=== PATIENT | female | born 1955 | race African-American/Black ===

== ENCOUNTER → 2016-09-10 | Outpatient (CLI) | payer OTHER ==
[2016-09-10 10:14] LABS: ANION GAP 15 (5-19); BLOOD UREA NITROGEN 39 mg/dL (7-20); CALCIUM 10.2 mg/dL (8.4-10.2); CARBON DIOXIDE 23 mmol/L (22-30); CHLORIDE 108 mmol/L (98-107); CREATININE RESULT 2.11 mg/dL (0.52-1.25); GLUCOSE 95 mg/dL (75-110); POTASSIUM 5.1 mmol/L (3.6-5.0); SODIUM 145.6 mmol/L (137-145)
[2016-09-11 11:40] LABS: CREATININE URINE 63.9 mg/dL (Not Estab.)
== END ==
LOC: OD 08:12
PROVIDERS: ATTEND Internal Medicine Nephrology
DX: N18.4 Chronic kidney disease, stage 4 (severe) (principal); R80.1 Persistent proteinuria, unspecified
CPT/HCPCS: 36415; 80048; 82570; 84156

== ENCOUNTER → 2016-12-17 | Outpatient (CLI) | payer OTHER ==
[2016-12-17 09:10] LABS: ABSOLUTE EOSINOPHILS # (AUTO) 0.2 10^3/uL (0.0-0.6); ABSOLUTE LYMPHOCYTES (AUTO) 2.8 10^3/uL (0.5-4.7); ABSOLUTE MONOCYTES (AUTO) 0.5 10^3/uL (0.1-1.4); ABSOLUTE NEUT (AUTO) 2.3 10^3/uL (1.7-8.2); BASOPHILS % (AUTO) 0.6 % (0-2); EOSINOPHILS % (AUTO) 3.5 % (0-6); HEMOGLOBIN 12.1 g/dL (12.0-15.5); HGB HCT DIFFERENCE -1.7; LYMPHOCYTES % (AUTO) 47.7 % (13-45); MEAN CORPUSCULAR HEMOGLOBIN 25.5 pg (27.0-33.4); MEAN CORPUSCULAR HGB CONC 31.8 g/dL (32.0-36.0); MEAN CORPUSCULAR VOLUME 80 fl (80-97); MONOCYTES % (AUTO) 8.5 % (3-13); RED BLOOD COUNT 4.76 10^6/uL (3.72-5.28); RED CELL DISTRIBUTION WIDTH 14.5 % (11.5-14.0); SEGMENTED NEUTROPHILS % (AUTO) 39.7 % (42-78); WHITE BLOOD COUNT 5.9 10^3/uL (4.0-10.5)
[2016-12-17 09:44] LABS: ANION GAP 18 (5-19); BLOOD UREA NITROGEN 68 mg/dL (7-20); CALCIUM 9.8 mg/dL (8.4-10.2); CARBON DIOXIDE 19 mmol/L (22-30); CHLORIDE 108 mmol/L (98-107); CREATININE RESULT 2.51 mg/dL (0.52-1.25); GLUCOSE 99 mg/dL (75-110); POTASSIUM 4.9 mmol/L (3.6-5.0); SODIUM 144.8 mmol/L (137-145)
[2016-12-17 09:49] LABS: URINE CREATININE 77.6 mg/dL (15-278); URINE PROTEIN 14.3 mg/dL (<12)
== END ==
LOC: OD 07:56
PROVIDERS: ATTEND Internal Medicine Nephrology
DX: N18.4 Chronic kidney disease, stage 4 (severe) (principal); R80.1 Persistent proteinuria, unspecified; N18.9 Chronic kidney disease, unspecified
CPT/HCPCS: 36415; 80048; 82570; 84156; 85025

== ENCOUNTER → 2017-03-18 | Outpatient (CLI) | payer OTHER ==
[2017-03-18 09:35] LABS: APPEARANCE,URINE SLIGHTLY-CLOUDY; BILIRUBIN,URINE NEGATIVE (NEGATIVE); GLUCOSE, URINE NEGATIVE (NEGATIVE); KETONES,URINE NEGATIVE (NEGATIVE); LEUKOCYTE ESTERASE,URINE NEGATIVE (NEGATIVE); NITRITE,URINE NEGATIVE (NEGATIVE); PROTEIN,URINE NEGATIVE (NEGATIVE); URINE SPECIFIC GRAVITY 1.008; UROBILINOGEN,URINE NEGATIVE mg/dL (<2.0)
[2017-03-18 09:41] LABS: ABSOLUTE EOSINOPHILS # (AUTO) 0.3 10^3/uL (0.0-0.6); ABSOLUTE LYMPHOCYTES (AUTO) 2.9 10^3/uL (0.5-4.7); ABSOLUTE MONOCYTES (AUTO) 0.5 10^3/uL (0.1-1.4); ABSOLUTE NEUT (AUTO) 2.7 10^3/uL (1.7-8.2); BASOPHILS % (AUTO) 0.8 % (0-2); EOSINOPHILS % (AUTO) 4.1 % (0-6); LYMPHOCYTES % (AUTO) 44.6 % (13-45); MEAN CORPUSCULAR HEMOGLOBIN 25.6 pg (27.0-33.4); MEAN CORPUSCULAR HGB CONC 32.5 g/dL (32.0-36.0); MEAN CORPUSCULAR VOLUME 79 fl (80-97); MONOCYTES % (AUTO) 8.3 % (3-13); RED BLOOD COUNT 4.69 10^6/uL (3.72-5.28); RED CELL DISTRIBUTION WIDTH 14.3 % (11.5-14.0); SEGMENTED NEUTROPHILS % (AUTO) 42.2 % (42-78); WHITE BLOOD COUNT 6.4 10^3/uL (4.0-10.5)
[2017-03-18 09:51] LABS: URINE CREATININE 83.1 mg/dL (15-278)
[2017-03-18 10:01] LABS: ALBUMIN 4.5 g/dL (3.5-5.0); ANION GAP 15 (5-19); BLOOD UREA NITROGEN 53 mg/dL (7-20); CALCIUM 10.3 mg/dL (8.4-10.2); CARBON DIOXIDE 24 mmol/L (22-30); CHLORIDE 106 mmol/L (98-107); CREATININE RESULT 2.64 mg/dL (0.52-1.25); GLUCOSE 99 mg/dL (75-110); PHOSPHORUS 4.2 mg/dL (2.5-4.5); POTASSIUM 4.6 mmol/L (3.6-5.0); SODIUM 145.2 mmol/L (137-145)
== END ==
LOC: OD 08:18
PROVIDERS: ATTEND Internal Medicine Nephrology
DX: N18.4 Chronic kidney disease, stage 4 (severe) (principal); N03.2 Chronic nephritic syndrome with diffuse membranous glomerulonephritis
CPT/HCPCS: 36415; 80048; 81001; 82040; 82306; 82570; 83970; 84100; 84156; 85025

== ENCOUNTER → 2017-06-17 | Outpatient (CLI) | payer OTHER ==
[2017-06-17 10:02] LABS: URINE CREATININE 100.3 mg/dL (15-278); URINE PROTEIN 19.2 mg/dL (<12)
[2017-06-17 14:06] LABS: ANION GAP 15 (5-19); BLOOD UREA NITROGEN 59 mg/dL (7-20); CALCIUM 10.2 mg/dL (8.4-10.2); CARBON DIOXIDE 24 mmol/L (22-30); CHLORIDE 107 mmol/L (98-107); CREATININE RESULT 2.59 mg/dL (0.52-1.25); GLUCOSE 111 mg/dL (75-110); POTASSIUM 4.4 mmol/L (3.6-5.0); SODIUM 146.3 mmol/L (137-145)
== END ==
LOC: OD 08:16
PROVIDERS: ATTEND Internal Medicine Nephrology
DX: N18.4 Chronic kidney disease, stage 4 (severe) (principal); R80.1 Persistent proteinuria, unspecified
CPT/HCPCS: 36415; 80048; 82570; 84156

== ENCOUNTER → 2017-09-23 | Outpatient (CLI) | payer OTHER ==
[2017-09-23 10:51] LABS: ABSOLUTE EOSINOPHILS # (AUTO) 0.2 10^3/uL (0.0-0.6); ABSOLUTE LYMPHOCYTES (AUTO) 2.7 10^3/uL (0.5-4.7); ABSOLUTE MONOCYTES (AUTO) 0.5 10^3/uL (0.1-1.4); ABSOLUTE NEUT (AUTO) 2.9 10^3/uL (1.7-8.2); BASOPHILS % (AUTO) 0.4 % (0-2); EOSINOPHILS % (AUTO) 3.4 % (0-6); HEMATOCRIT 37.5 % (36.0-47.0); HEMOGLOBIN 12.1 g/dL (12.0-15.5); LYMPHOCYTES % (AUTO) 42.1 % (13-45); MEAN CORPUSCULAR HEMOGLOBIN 25.4 pg (27.0-33.4); MEAN CORPUSCULAR HGB CONC 32.1 g/dL (32.0-36.0); MEAN CORPUSCULAR VOLUME 79 fl (80-97); MONOCYTES % (AUTO) 8.4 % (3-13); PLATELET COUNT 271 10^3/uL (150-450); RED BLOOD COUNT 4.74 10^6/uL (3.72-5.28); RED CELL DISTRIBUTION WIDTH 14.4 % (11.5-14.0); SEGMENTED NEUTROPHILS % (AUTO) 45.7 % (42-78); TOTAL CELLS COUNTED % (AUTO) 100 %; WHITE BLOOD COUNT 6.3 10^3/uL (4.0-10.5)
[2017-09-23 10:56] LABS: APPEARANCE,URINE CLOUDY; BILIRUBIN,URINE NEGATIVE (NEGATIVE); COLOR,URINE YELLOW; GLUCOSE, URINE NEGATIVE (NEGATIVE); KETONES,URINE NEGATIVE (NEGATIVE); LEUKOCYTE ESTERASE,URINE NEGATIVE (NEGATIVE); NITRITE,URINE NEGATIVE (NEGATIVE); PROTEIN,URINE NEGATIVE (NEGATIVE); URINE SPECIFIC GRAVITY 1.009; UROBILINOGEN,URINE NEGATIVE mg/dL (<2.0)
[2017-09-23 11:14] LABS: ALBUMIN 4.6 g/dL (3.5-5.0); ANION GAP 15 (5-19); BLOOD UREA NITROGEN 62 mg/dL (7-20); CALCIUM 10.1 mg/dL (8.4-10.2); CARBON DIOXIDE 24 mmol/L (22-30); CHLORIDE 108 mmol/L (98-107); GLUCOSE 96 mg/dL (75-110); PHOSPHORUS 4.3 mg/dL (2.5-4.5); POTASSIUM 4.6 mmol/L (3.6-5.0); SODIUM 147.2 mmol/L (137-145)
[2017-09-23 11:32] LABS: UR PRO/CREAT RATIO RESULT 0.2 mg/mg (0.0-0.2); URINE CREATININE 84.1 mg/dL (15-278); URINE PROTEIN 15.8 mg/dL (<12)
== END ==
LOC: OD 10:10
PROVIDERS: ATTEND Internal Medicine Nephrology
DX: N18.4 Chronic kidney disease, stage 4 (severe) (principal); N25.81 Secondary hyperparathyroidism of renal origin; E79.0 Hyperuricemia without signs of inflammatory arthritis and tophaceous disease; E55.9 Vitamin D deficiency, unspecified
CPT/HCPCS: 36415; 80048; 81001; 82040; 82306; 82570; 83970; 84100; 84156; 84550; 85025

== ENCOUNTER 2019-01-27 09:31 | Day surgery (SDC) | payer MEDICARE, OTHER ==
[~2019-01-27 09:31] MED LIST: PROPOFOL INJ 200 MG/20 ML VIAL IV ONE
[2019-01-27] MEDS ORDERED: PROPOFOL INJ 200 MG/20 ML VIAL IV ONE (10:40)
--- NOTE | 2019-01-27 11:23 | Operative Report ---
Operative Report DATE OF SURGERY: 01/27/19 Operative Report: The risks, benefits and alternatives of the procedure including the risk of bleeding, perforation requiring surgery have been explained to the patient in detail and informed consent has been obtained. Patient is taken back to the endoscopy suite and placed in a left, lateral decubital position. Timeout was called. Propofol medication is administered. A rectal examination is done which did not reveal any masses, tears or fissures. An Olympus videoscope was introduced into the patient's rectum. The scope was then carefully advanced all the way to the cecum. The cecum was identified by the usual anatomical landmarks including the ileocecal valve as well as the appendiceal office. Photodocumentation is obtained. Scope was then sequentially pulled back via the various segments of the colon including the ascending colon, hepatic flexure, transverse colon, splenic flexure, descending colon and finally into the rectosigmoid portions of the colon. Retroflexion maneuvers performed. PREOPERATIVE DIAGNOSIS: Change in bowel habits, blood in stool POSTOPERATIVE DIAGNOSIS: Mild inflammation noted on the right-hand side of the colon status post biopsy. Diverticulosis of a moderate degree in the sigmoid colon without any evidence of diverticulitis. Internal hemorrhoids OPERATION: Colonoscopy with biopsy SURGEON: SILVERIO VAN ANESTHESIA: LMAC TISSUE REMOVED OR ALTERED: As noted above. COMPLICATIONS: None. ESTIMATED BLOOD LOSS: None. INTRAOPERATIVE FINDINGS: As noted above. PROCEDURE: Patient tolerated the procedure well. No immediate postprocedure complications are noted. Patient is discharged in good condition. Discharge date 01/27/2019. Discharge diet: Regular. Discharge activity: Regular. 2 to 3-week follow-up to discuss findings. Patient is instructed to call the office or proceed to the emergency room should there be any further problems or questions. Wait on the pathology.
[2019-01-27 11:35] VITALS: BP 147/81
== END 2019-01-27 11:26 | disposition home or self-care (01) ==
LOC: END 09:31
PROVIDERS: ATTEND Internal Medicine Gastroenterology
DX: K52.9 Noninfective gastroenteritis and colitis, unspecified (principal); K57.30 Diverticulosis of large intestine without perforation or abscess without bleeding; K64.8 Other hemorrhoids; K92.1 Melena; Z86.010 Personal history of colon polyps; I10 Essential (primary) hypertension; M10.9 Gout, unspecified; E66.9 Obesity, unspecified; Z68.41 Body mass index [BMI] 40.0-44.9, adult; Z79.51 Long term (current) use of inhaled steroids
CPT/HCPCS: 45380; 88305 ×2; 00811; J2704; 811

== ENCOUNTER → 2019-02-22 | Outpatient (CLI) | payer MEDICARE, OTHER | LOC: RAD 08:29 | PROVIDERS: ATTEND Internal Medicine Gastroenterology | DX: R10.11 Right upper quadrant pain (principal) | CPT/HCPCS: 82565 ==

== ENCOUNTER → 2020-04-16 | Outpatient (CLI) | payer MEDICARE, OTHER ==
[2020-04-16 12:24] LABS: ABSOLUTE BASOPHILS # (AUTO) 0.1 10^3/uL (0.0-0.2); ABSOLUTE EOSINOPHILS # (AUTO) 0.2 10^3/uL (0.0-0.6); ABSOLUTE LYMPHOCYTES (AUTO) 1.6 10^3/uL (0.5-4.7); ABSOLUTE MONOCYTES (AUTO) 0.4 10^3/uL (0.1-1.4); ABSOLUTE NEUT (AUTO) 3.2 10^3/uL (1.7-8.2); EOSINOPHILS % (AUTO) 2.9 % (0-6); HEMATOCRIT 35.7 % (36.0-47.0); HEMOGLOBIN 11.6 g/dL (12.0-15.5); LYMPHOCYTES % (AUTO) 29.2 % (13-45); MEAN CORPUSCULAR HEMOGLOBIN 25.7 pg (27.0-33.4); MEAN CORPUSCULAR HGB CONC 32.4 g/dL (32.0-36.0); MEAN CORPUSCULAR VOLUME 79 fl (80-97); PLATELET COUNT 317 10^3/uL (150-450); RED BLOOD COUNT 4.51 10^6/uL (3.72-5.28); RED CELL DISTRIBUTION WIDTH 16.4 % (11.5-14.0); SEGMENTED NEUTROPHILS % (AUTO) 58.9 % (42-78); TOTAL CELLS COUNTED % (AUTO) 100 %; WHITE BLOOD COUNT 5.5 10^3/uL (4.0-10.5)
[2020-04-16 12:26] LABS: APPEARANCE,URINE SLIGHTLY-CLOUDY; BILIRUBIN,URINE NEGATIVE (NEGATIVE); COLOR,URINE YELLOW; GLUCOSE, URINE NEGATIVE (NEGATIVE); KETONES,URINE NEGATIVE (NEGATIVE); LEUKOCYTE ESTERASE,URINE NEGATIVE (NEGATIVE); NITRITE,URINE NEGATIVE (NEGATIVE); PROTEIN,URINE NEGATIVE (NEGATIVE); URINE SPECIFIC GRAVITY 1.012; UROBILINOGEN,URINE NEGATIVE mg/dL (<2.0)
[2020-04-16 12:48] LABS: ALBUMIN 4.5 g/dL (3.5-5.0); ANION GAP 14 (5-19); BLOOD UREA NITROGEN 49 mg/dL (7-20); CALCIUM 10.3 mg/dL (8.4-10.2); CARBON DIOXIDE 23 mmol/L (22-30); CHLORIDE 107 mmol/L (98-107); GLUCOSE 107 mg/dL (75-110); POTASSIUM 4.3 mmol/L (3.6-5.0)
[2020-04-16 12:56] LABS: C-REACTIVE PROTEIN < 5.0 mg/L (<10.0)
[2020-04-16 13:06] LABS: ERYTHROCYTE SEDIMENTATION RATE 77 mm/hr (0-30)
--- NOTE | 2020-04-16 13:15 | RADIOLOGY REPORT (SQ) ---
EXAM DESCRIPTION: CHEST PA/LATERAL IMAGES COMPLETED DATE/TIME: 04/16/2020 12:18 pm REASON FOR STUDY: PRE-OP COMPARISON: None. EXAM PARAMETERS: NUMBER OF VIEWS: two views TECHNIQUE: Digital Frontal and Lateral radiographic views of the chest acquired. RADIATION DOSE: NA LIMITATIONS: none FINDINGS: LUNGS AND PLEURA: No opacities, masses or pneumothorax. No pleural effusion. MEDIASTINUM AND HILAR STRUCTURES: No masses or contour abnormalities. HEART AND VASCULAR STRUCTURES: Heart normal size. No evidence for failure. BONES: No acute findings. HARDWARE: None in the chest. OTHER: No other significant finding. IMPRESSION: NO SIGNIFICANT RADIOGRAPHIC FINDING IN THE CHEST. TECHNICAL DOCUMENTATION: JOB ID: [id number] 2010 [employer]- All Rights Reserved Reading location - IP/workstation name: [email or web address]
--- NOTE | 2020-04-16 19:51 | EKG REPORT ---
SEVERITY:- ABNORMAL ECG - SINUS RHYTHM INCOMPLETE LEFT BUNDLE BRANCH BLOCK : Confirmed by: Leandra Simmons 16-Apr-2020 19:50:27
== END ==
LOC: OD 10:41
PROVIDERS: ATTEND Orthopaedic Surgery
DX: Z01.812 Encounter for preprocedural laboratory examination (principal); Z01.811 Encounter for preprocedural respiratory examination; Z01.810 Encounter for preprocedural cardiovascular examination
CPT/HCPCS: 36415; 71046; 80048; 81001; 82040; 82306; 83036; 85025; 85652; 86140; 87070; 93005; 93010

== ENCOUNTER 2020-05-06 05:34 | Observation (INO) | payer MEDICARE, OTHER ==
[~2020-05-06 05:34] MED LIST changes: +ACETAMINOPHEN 325 MG TABLET PO PRN; +CEFAZOLIN 2 GM/D5W RTU 2 GM/50 ML RTUPB IV PRN; +CELECOXIB 200 MG CAPSULE PO PRN; +GABAPENTIN 100 MG CAPSULE PO PRN; +NORMAL SALINE 1000 ML (RENAL PATIENTS) IV PRN; +ONDANSETRON 4 MG TAB.RAPDIS PO PRN; +OXYCODONE HCL SR 10 MG TABLET PO PRN; +PANTOPRAZOLE SODIUM 20 MG TABLET.DR PO PRN; -PROPOFOL INJ 200 MG/20 ML VIAL IV ONE; +SCOPOLAMINE HYDROBROMIDE 1.5 MG PATCH.TD72 TD PRN; +TRANEXAMIC ACID INJ/PF 1,000 MG/10 ML SDV IV PRN; +VANCOMYCIN HCL 1,000 MG in DEXTROSE 5%-WATER 250 ML IV PRN
[2020-05-06] MEDS ORDERED: CELECOXIB 200 MG CAPSULE ONE (05:42)
[2020-05-06] MEDS ORDERED: CEFAZOLIN 2 GM/D5W RTU 2 GM/50 ML RTUPB IV ONE (05:42)
[2020-05-06] MEDS ORDERED: ACETAMINOPHEN 325 MG TABLET ONE (05:42)
[2020-05-06] MEDS ORDERED: OXYCODONE HCL SR 10 MG TABLET PO ONE (05:43)
[2020-05-06] MEDS ORDERED: GABAPENTIN 100 MG CAPSULE ONE (05:43)
[2020-05-06] MEDS ORDERED: ONDANSETRON 4 MG TAB.RAPDIS ONE (05:43)
[2020-05-06] MEDS ORDERED: PANTOPRAZOLE SODIUM 20 MG TABLET.DR PO ONE ×2 (05:43→09:00)
[2020-05-06] MEDS ORDERED: SCOPOLAMINE HYDROBROMIDE 1.5 MG PATCH.TD72 ONE (05:43)
[2020-05-06] MEDS ORDERED: FENTANYL CITRATE INJ/PF 100 MCG/2 ML AMPUL ONE (06:18)
[2020-05-06] MEDS ORDERED: TRANEXAMIC ACID INJ/PF 1,000 MG/10 ML SDV ONE (06:18)
[2020-05-06] MEDS ORDERED: ONDANSETRON HCL INJ/PF 4 MG/2 ML SDV ONE (06:18)
[2020-05-06] MEDS ORDERED: MIDAZOLAM 2 MG/2 ML INJ ONE (06:18)
[2020-05-06] MEDS ORDERED: PROPOFOL INJ 200 MG/20 ML VIAL IV ONE ×2 (06:19→06:21)
[2020-05-06] MEDS ORDERED: EPINEPHRINE INJ/PF 1 MG/1 ML AMPULE ONE (06:21)
[2020-05-06] MEDS ORDERED: EPHEDRINE SULFATE INJ 50 MG/1 ML AMPULE ONE (06:32)
[2020-05-06] MEDS ORDERED: LIDOCAINE 1% INJ-PF (10 MG/ML) 30 ML SDV ONE (07:07)
[2020-05-06] MEDS ORDERED: BUPIVACAINE HCL 0.25 % INJ/PF (2.5 MG/1 ML) 30 ML VIAL ONE (07:07)
[2020-05-06] MEDS ORDERED: VANCOMYCIN HCL INJ 1000 MG VIAL ONE (07:07)
[2020-05-06] MEDS ORDERED: KETOROLAC TROMETHAMINE INJ/PF 30 MG/1 ML SDV ONE (07:07)
[2020-05-06] MEDS ORDERED: NORMAL SALINE 1000 ML 1,000 ML IV ONE (07:34)
[2020-05-06] MEDS ORDERED: TRANEXAMIC ACID INJ/PF 1,000 MG/10 ML SDV IV ONE (07:34)
[2020-05-06] MEDS ORDERED: ONDANSETRON 4 MG TAB.RAPDIS PO PRN (07:34)
[2020-05-06] MEDS ORDERED: DOCUSATE SODIUM 100 MG CAPSULE PO PRN (07:34)
[2020-05-06] MEDS ORDERED: OXYCODONE HCL IR 5 MG TABLET PO PRN ×3 (07:34)
[2020-05-06] MEDS ORDERED: TRAMADOL HCL 50 MG TABLET PO PRN (07:34)
[2020-05-06] MEDS ORDERED: MORPHINE SULFATE 10 MG/ML INJ IV PRN ×3 (07:34→08:13)
[2020-05-06] MEDS ORDERED: DIPHENHYDRAMINE HCL 25 MG CAPSULE PO PRN (07:34)
[2020-05-06] MEDS ORDERED: ZOLPIDEM TARTRATE 5 MG TABLET PO PRN (07:34)
[2020-05-06 07:48] LABS: INTERNATIONAL RATION (INR) 0.89; PROTHROMBIN TIME 12.3 SEC (11.4-15.4)
[2020-05-06 07:49] LABS: PARTIAL THROMBOPLASTIN TIME 28.9 SEC (23.5-35.8)
[2020-05-06] MEDS ORDERED: CEFAZOLIN INJ 1 GM VIAL ONE (08:08)
[2020-05-06] MEDS ORDERED: ROPIVACAINE HCL 0.2% INJ/PF (2 MG/ML) 20 ML SDV ONE (08:11)
[2020-05-06] MEDS ORDERED: MEPERIDINE HCL/PF INJ 25 MG/1 ML DISP.SYRIN IV PRN (08:13)
[2020-05-06] MEDS ORDERED: FENTANYL CITRATE INJ/PF 100 MCG/2 ML AMPUL IV PRN ×3 (08:13)
[2020-05-06] MEDS ORDERED: PROMETHAZINE HCL INJ 25 MG/1 ML VIAL IV PRN ×2 (08:13)
[2020-05-06] MEDS ORDERED: ONDANSETRON HCL INJ/PF 4 MG/2 ML SDV IV PRN (08:13)
[2020-05-06] MEDS ORDERED: DIPHENHYDRAMINE HCL 50 MG/ML VIAL IV PRN (08:13)
--- NOTE | 2020-05-06 09:55 | Operative Report ---
Operative Report DATE OF SURGERY: 05/06/20 PREOPERATIVE DIAGNOSIS: Severe left knee primary osteoarthritis POSTOPERATIVE DIAGNOSIS: Severe left knee primary osteoarthritis OPERATION: Left total knee arthroplasty SURGEON: CORNEL WORTHINGTON JR ANESTHESIA: Spinal COMPLICATIONS: None PROCEDURE: Components: Jose persona total knee: 5 PS femur, E x 13 tibia with a 14 x 30 mm stem, and a 32 patella OPERATIVE PROCEDURE: Patient was brought to the operating room and spinal anesthesia was administered. After proper anesthesia was obtained, patient was positioned, padded, prepped, and draped in the usual sterile fashion on the operating room table. 3 grams of Ancef and 1 g of vancomycin were given. Appropriate time out was performed. Anterior incision and medial-parapatella approach was performed. Severe degenerative arthritis was noted. Osteophytes were removed from the femur and tibia, and the remainder of the ACL and PCL were removed. The proximal tibia was then prepared and cut perpendicular to the tibial shaft axis and measured to a ED tibia. The distal femur was drilled, the canal was irrigated and the distal femoral guide was placed. The distal femur was cut 10 mm to 5 degrees of varus. An extension 10 block was placed in the gap was found to be slightly tight. We then proceeded to take 2 more millimeters off of the distal femur and rechecking with a 10 block found this to be ideal. The tensor was placed in extension and the extension gap was balanced with releases until the goniometer on the tensor measured to 2 degrees tight laterally due to her prior valgus deformity. The tensor was placed in flexion and the femur was sized to 5. Drill holes were placed to the appropriate femoral rotation. The 4 and 1 block was placed and the flexion gap was then re-checked with the tensor adapter and found to be appropriate. Anterior-posterior and chamfer cuts were made. Posterior osteophytes were removed. The femoral trial was then placed, and the notch was cut. The combination of the tibial baseplate and the 13 mm polyethylene liner were then placed and the knee was taken through a range of motion with the trials in. This had excellent balance in extension and flexion as well as patellar tracking. The patella AP aspect was measured to 23 mm mm and the patella was cut parallel to the anterior patella surface. A 32 mm button was placed medially and superiorly as possible and the patella-button construct was measured to a thickness of 25 mm. This was again taken through a range of motion and found to have splint balance, stability and ease of full motion. The rotation of the tibial baseplate was marked, the tibial was anteriorly subluxed and the tibial component was pinned and drilled and punched. All the trials were then removed and the wound was copiously irrigated with sterile saline followed by a Betadine soak. After pulsatile irrigation of the christopher and soft tissue surfaces, the christopher surfaces were cleaned and dried, and cementation of the femur, tibia, and patella was performed. All excess cement was thoroughly removed. The knee was placed in slight flexion until cement was hard. The tourniquet was deflated and all bleeders were cauterized. The knee was irrigated copiously. A gram of Vancomycin was placed intra-articularly. The extensor mechanism was closed with 0 vicryl tacking sutures and number 2 Stratofix. The subcutaneous tissue was closed with 2-0 monocryl and the skin closed with 2-0 running monocryl. A silver dressing was applied. All needle sponge and instrument counts were correct. Patient was awakened from sedation anesthesia and taken to recovery room in good condition. Cornel Worthington DO
[2020-05-06] MEDS ORDERED: NIFEDIPINE 90 MG PO SCH (10:00)
[2020-05-06] MEDS ORDERED: (PENDING PHARMACY ID) (Telmisartan [Micardis 80 Mg Tablet] 80 MG) PO SCH (10:00)
[2020-05-06] MEDS ORDERED: ATENOLOL 25 MG PO SCH (10:00)
[2020-05-06] MEDS ORDERED: (PENDING PHARMACY ID) (Cetirizine Hcl [Zyrtec] 10 MG) PO SCH (10:00)
[2020-05-06] MEDS: FENTANYL CITRATE INJ/PF 100 MCG/2 ML AMPUL ONE ×3 (10:15→10:25)
[2020-05-06] MEDS ORDERED: MORPHINE SULFATE 10 MG/ML INJ ONE (10:42)
[2020-05-06] MEDS ORDERED: DEXAMETHASONE SOD PHOS INJ 10 MG/1 ML VIAL ONE (10:42)
[2020-05-06] MEDS: DEXAMETHASONE SOD PHOS INJ 10 MG/1 ML VIAL IV ONE ×2 (10:45→14:02)
[2020-05-06] MEDS ORDERED: HYDROMORPHONE HCL INJ/PF 2 MG/ML AMPULE ONE (10:52)
[2020-05-06] MEDS ORDERED: ACETAMINOPHEN 1,000 MG/100 ML RTUPB IV ONE (10:55)
--- NOTE | 2020-05-06 11:05 | Discharge Summary ---
Discharge Summary (SDC) - Discharge Final Diagnosis: Left total knee arthroplasty Date of Surgery: 05/06/20 Discharge Date: 05/07/20 Condition: Stable Treatment or Instructions: Full details of postoperative instructions have been provided to the patient in the clinic. Additionally they should maintain their bandage in place for 10 days, and then changed to a dry dressing. They can take showers with this occlusive dressing but any further dressing should also be occlusive. No showers with the wound unprotected until cleared by me in the clinic. If the bandage falls off early or become saturated they can change as needed to another occlusive dressing. Follow-up with Dr. Cornel Wilson, orthopedic surgeon at [facility] for surgery, in 10 days. Call for an appointment. . [address], [place] [address] Discharge Diet: As Tolerated Respiratory Treatments at Home: Deep Breathing/Coughing Discharge Activity: Activity As Tolerated, No Driving, Keep Legs Elevated, No Lifting/Push/Pulling, Slowly Increase Activity, No tub bath, Walk Frequently Activities Provided by Home Health Agency: Physical Therapy Adaptive Devices on Discharge: Rolling Walker, Bedside Commode Report the Following to Your Physician Immediately: Shortness of Breath, Fever over 101 Degrees, Unusual Bleeding, Drainage-Yellow
--- NOTE | 2020-05-06 11:08 | RADIOLOGY REPORT (SQ) ---
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 NUMBER OF VIEWS: Two view(s). TECHNIQUE: Digital radiographic images of the left knee post-procedure. LIMITATIONS: None. FINDINGS: BONES: No worrisome or unexpected findings post-procedure. DEVICE: Total knee arthroplasty. SOFT TISSUES: No worrisome findings. Expected postoperative soft tissue changes. IMPRESSION: SATISFACTORY POSTOPERATIVE LEFT KNEE. TECHNICAL DOCUMENTATION: JOB ID: [id number] 2010 [email or web address]- All Rights Reserved Reading location - IP/workstation name: [email or web address]
[2020-05-06] MEDS ORDERED: HYDROMORPHONE HCL INJ/PF 2 MG/ML AMPULE IV PRN (11:09)
[2020-05-06] MEDS ORDERED: CEFAZOLIN 2 GM/D5W RTU 2 GM/50 ML RTUPB IV SCH (14:00)
[2020-05-06] MEDS: POLYETHYLENE GLYCOL 3350 POWDER 17 GM/1 PACKET PO SCH (14:02)
[2020-05-06] MEDS: ACETAMINOPHEN 325 MG TABLET PO SCH ×3 (14:15→23:07)
[2020-05-06] MEDS: KETOROLAC TROMETHAMINE INJ/PF 30 MG/1 ML SDV IV SCH ×2 (14:15→21:41)
[2020-05-06] MEDS: HYDRALAZINE HCL 50 MG TABLET PO SCH ×2 (16:26→21:40)
[2020-05-06] MEDS: CEFAZOLIN SODIUM 2 GM in DEXTROSE 5%-WATER 100 ML IV SCH ×2 (16:27→21:41)
[2020-05-06] MEDS: OXYCODONE HCL IR 5 MG TABLET PO PRN ×2 (16:28→23:20)
[2020-05-06] MEDS: GABAPENTIN 100 MG CAPSULE PO SCH (21:41)
[2020-05-06] MEDS: NIFEDIPINE 30 MG TAB.ER.24 PO SCH (21:41)
[2020-05-07] MEDS: ACETAMINOPHEN 325 MG TABLET PO SCH ×2 (05:15→12:14)
[2020-05-07] MEDS: KETOROLAC TROMETHAMINE INJ/PF 30 MG/1 ML SDV IV SCH (05:15)
[2020-05-07] MEDS: HYDRALAZINE HCL 50 MG TABLET PO SCH (05:16)
--- NOTE | 2020-05-07 07:48 | PDOC PROGRESS REPORT ---
Subjective Progress Note for:: 05/07/20 Subjective:: No events overnight. Pain well controlled. No new complaints. Reason For Visit: LEFT TOTAL KNEE ARTHROPLASTY Physical Exam Vital Signs: Temp Pulse Resp BP Pulse Ox 98.1 F 78 18 172/68 H 99 05/06/20 23:07 05/06/20 23:07 05/06/20 23:07 05/06/20 23:07 05/06/20 23:07 Intake & Output 05/06/20 05/07/20 05/08/20 06:59 06:59 06:59 Intake Total 0 2294 Output Total 20 Balance 0 2274 Weight 122.47 kg 122.4 kg Physical Exam: NAD, AOx3 LLE - Pulses 2+, capillary refill less than 2 seconds - Compartments soft - Dressing C/D/I - NVI Results Laboratory Results: 05/06/20 07:17 05/06/20 07:17 Potassium Cancelled Impressions: Knee X-Ray 05/06/20 09:25 IMPRESSION: SATISFACTORY POSTOPERATIVE LEFT KNEE. Assessment & Plan - Diagnosis (1) History of total left knee replacement Is this a current diagnosis for this admission?: Yes Plan: POD 1 - Plan for DC home today - Complete post op antibiotics - WBAT - PT - Follow in my office in 10 days - DC instructions in chart - ASA for DVT PPX - Time Time Spent with patient: Less than 15 minutes
[2020-05-07] MEDS: OXYCODONE HCL IR 5 MG TABLET PO PRN (08:33)
[2020-05-07] MEDS: GABAPENTIN 100 MG CAPSULE PO SCH (09:13)
[2020-05-07] MEDS: NIFEDIPINE 30 MG TAB.ER.24 PO SCH (09:16)
[2020-05-07] MEDS: POLYETHYLENE GLYCOL 3350 POWDER 17 GM/1 PACKET PO SCH (09:19)
[2020-05-07] MEDS ORDERED: FEBUXOSTAT 40 MG TABLET PO SCH (10:00)
[2020-05-07] MEDS ORDERED: CELECOXIB 200 MG CAPSULE PO SCH (10:00)
[2020-05-07] MEDS ORDERED: LOSARTAN POTASSIUM 50 MG TABLET PO SCH (10:00)
[2020-05-07] MEDS ORDERED: FUROSEMIDE 20 MG TABLET PO SCH (10:00)
[2020-05-07] MEDS ORDERED: CETIRIZINE 10 MG TABLET PO SCH (10:00)
[2020-05-07] MEDS ORDERED: ASPIRIN 325 MG TABLET PO SCH (10:00)
[2020-05-07] MEDS ORDERED: CETIRIZINE 5 MG TABLET PO SCH (10:00)
[2020-05-07] MEDS ORDERED: ATENOLOL 50 MG TABLET PO SCH ×2 (10:00)
[2020-05-07 13:01] VITALS: BP 120/64
[2020-05-08] MEDS ORDERED: CELECOXIB 200 MG CAPSULE PO SCH (10:00)
== END 2020-05-07 13:38 | disposition home health service (06) ==
LOC: OROUT 05:34 → 4S 07:34
PROVIDERS: ADMIT Orthopaedic Surgery; ATTEND Orthopaedic Surgery
DX: M17.12 Unilateral primary osteoarthritis, left knee (principal); I12.9 Hypertensive chronic kidney disease with stage 1 through stage 4 chronic kidney disease, or unspecified chronic kidney disease; N18.4 Chronic kidney disease, stage 4 (severe); E78.5 Hyperlipidemia, unspecified; G47.30 Sleep apnea, unspecified; Z79.01 Long term (current) use of anticoagulants; Z03.818 Encounter for observation for suspected exposure to other biological agents ruled out; Z96.651 Presence of right artificial knee joint; Z79.899 Other long term (current) drug therapy
CPT/HCPCS: 99281; 36415; 85610; 85730; 73560; 97530 ×2; 97110 ×2; 97116 ×2; 97162; 64447; 76942; 01402; 27447; G0378 ×2; C1713 ×2; C1776; U0003; A9270 ×19; J2250; J0690 ×2; J3490 ×4; J0171; J3010; J1885 ×2; J2270; J1170; J2405; J7060 ×2; J2704; J3370; J1100; J0131; J2795; C9803; 87635; S0119